=== PATIENT | female | born 1945 | race Caucasian/White ===

== ENCOUNTER → 2020-05-23 | Outpatient (CLI) | payer OTHER | LOC: M.ULTRA 09:00 | PROVIDERS: ATTEND Registered Nurse Diabetes Educator | DX: R74.8 Abnormal levels of other serum enzymes (principal); Z90.49 Acquired absence of other specified parts of digestive tract ==

== ENCOUNTER → 2021-09-19 | Outpatient (CLI) | payer OTHER | LOC: M.RAD 16:52 | PROVIDERS: ATTEND Registered Nurse Diabetes Educator | DX: R05.9 Cough, unspecified (principal) ==